=== PATIENT | female | born 1960 | race Caucasian/White ===

== ENCOUNTER 2016-11-21 17:12 | Emergency (ER) | payer OTHER ==
[~2016-11-21] VITALS: Ht 162.6 cm; Wt 67.3 kg
[2016-11-21 17:21] VITALS: BP 167/105; PULSE 72; RESP 16; O2SAT 98
--- NOTE | 2016-11-21 17:43 | DRSVH ---
PROCEDURE: X-RAY LEFT WRIST COMPLETE, MINIMUM THREE VIEWS ([id number]) INDICATIONS: pain TECHNIQUE: 4 views of the wrist were acquired. COMPARISON: None. FINDINGS: Bones: No fractures or dislocations. No suspicious bony lesions. 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 Scaphoid view: No visualized fracture. Soft tissues: No suspicious soft tissue calcifications. IMPRESSION: No visualized acute fracture or dislocation. However, if clinical concern and/or pain pe rsist, short interval imaging followup in 7-10 days is recommended, as occult injury cannot be defini tively excluded. Dictated by: Megan Dupont M.D. on 11/21/2016 at 17:41 Approved by: Megan Dupont M.D. on 11/21/2016 at 17:42
--- NOTE | 2016-11-21 18:51 | ED.REPORT ---
HPI-Extremity Problem Upper Date of Service Nov 21, 2016 ED Provider: Rudy Marino PA-C Kimberly's otherwise healthy 56-year-old female who presents with a chief complaint of left wrist pain. The pain started when she had her left hand pinched against a hard surface while trying to catch her fall and mother. Denies numbness, tingling, weakness. Nursing Notes Stated Complaint: WRIST INJURY Chief Complaint: Extremity Trauma Nursing Notes Reviewed: Yes Allergies: Coded Allergies: codeine (Verified Allergy, Unknown, itch, 11/21/16) General Time Seen by MD: 18:40 Chief Complaint Hand Injury left Past Medical History Past Medical History Notes: Denies Review of Systems Review of Systems Note: Negative unless stated otherwise in history of present illness Physical Exam General: Well appearing, well developed, well nourished, no acute distress. Left arm: Mild tenderness over anatomical snuffbox and with axial loading of the first metacarpal. 1 x 2 cm abrasion near the ulnar styloid. No redness, swelling, deformity noted. Full range of motion in elbow and wrist MCP DIP and PIP joints, pulses present, brisk capillary refill and sensation intact. Head: Atraumatic, normocephalic. Eyes: No scleral icterus or injection. No discharge. Vision grossly intact. ENT: Voice clear, hearing grossly intact. Respiratory: No respiratory distress, no increased work of breathing. Speaks in complete sentences. Skin: Warm and dry. Neurological: Grossly nonfocal. Psychological: alert and oriented. Speech appropriate, linear and logical. Behavior appropriate. Initial Vital Signs Vital Signs (First) Date Time Temp Pulse Resp B/P Pulse Ox O2 Delivery O2 Flow Rate FiO2 11/21/16 17:21 36.8 72 16 167/105 98 Room Air Initial VS: Reviewed, Vital signs abnormal (elevated blood pressure) Interpretation & Diagnostics X-Ray Interpretation Xray Interpretation: PROCEDURE: X-RAY LEFT WRIST COMPLETE, MINIMUM THREE VIEWS ([id number]) INDICATIONS: pain IMPRESSION: No visualized acute fracture or dislocation. However, if clinical concern and/or pain persist, short interval imaging followup in 7-10 days is recommended, as occult injury cannot be definitively excluded. Re-Eval/Medical Decision Med Decision/Clinical Course Otherwise healthy 13-year-old female presents with left wrist pain after having her forearm pinched between a solid surface and her mother's head as she was falling. X-rays are negative however there is mild tenderness over the anatomical snuffbox and with axial loading of the first metacarpal. Range of motion, strength, sensation and circulation are intact. I am concerned about occult scaphoid fracture. Placed the patient in a thumb spica splint, explained the possibility of an occult scaphoid fracture and the possible consequences. Advise over-the- counter analgesics, follow-up with orthopedics and gave return precautions Discharge & Departure Impression: Primary Impression: Left wrist pain Disposition: Home Discharge Condition All VS Reviewed: Yes Condition: Stable Patient Instructions: Splint Care (ED) Additional Instructions: Evaluation for left wrist pain the emergency department. X-rays of the left wrist do not show any fractures. However my physical examination raises the question of fracture T or scaphoid bone that may not appear on x-ray. This is somewhat unlikely, the consequences of ignoring it could be severe. You have been placed in a a thumb spica splint to be worn at all times except bathing until you follow up with an orthopedic surgeon. I will provide referral to an orthopedic surgeon. Please contact them to arrange follow-up in about 1 week. The pain is best treated with 400 mg of ibuprofen (Advil, Motrin) every 6 hours , or 1000 mg of acetaminophen (Tylenol) every 6 hours. These drugs can be taken at the same time for more severe pain. Return to emergency department for new or worsening symptoms including increasing pain, paleness or numbness in the affected limb. Referrals: Marshall Juarez MD EDSupervising Provider for [facility]: Robin Montalvo MD copies to: Marshall Juarez MD, Seth PA-C Nov 21, 2016 18:51
[2016-11-21 19:20] VITALS: BP 155/98
== END 2016-11-21 19:21 | disposition home or self-care (01) ==
LOC: SED 17:12
DX: M25.532 Pain in left wrist (principal); W23.0XXA Caught, crushed, jammed, or pinched between moving objects, initial encounter; Y93.89 Activity, other specified; Y92.9 Unspecified place or not applicable; Y99.8 Other external cause status

== ENCOUNTER 2017-04-14 00:58 | Day surgery (SDC) | payer SELFPAY ==
[~2017-04-14 00:58] MED LIST: HYDR25TA4 PO; OMEP20TA24 PO
[2017-04-14] MEDS ORDERED: 0.9% Sodium Chloride 1,000 ML IV SCH (06:00)
[2017-04-14] MEDS ORDERED: Sodium Chloride LOK Flush 10 mL Syringe IV PRN (06:00)
[2017-04-14] MEDS ORDERED: fentaNYL-PF 50 mCg/mL 2 mL Inj IVPUSH PRN (06:00)
== END 2017-04-14 23:59 | disposition home or self-care (01) ==
LOC: END 00:58
PROVIDERS: ATTEND Internal Medicine Gastroenterology
DX: Z12.11 Encounter for screening for malignant neoplasm of colon (principal); Z53.8 Procedure and treatment not carried out for other reasons